=== PATIENT | female | born 2000 | race Native Hawaiian/Other Pacific Islander ===

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

== ENCOUNTER 2020-10-25 03:03 | Emergency (ER) | payer OTHER ==
[~2020-10-25] VITALS: Ht 152.4 cm; Wt 83.0 kg
[2020-10-25 03:45] VITALS: BP 136/88; TEMP 98.7
== END 2020-10-25 03:45 | disposition home or self-care (01) ==
LOC: ED 03:03
DX: R05 Cough (principal); R09.82 Postnasal drip; Z3A.12 12 weeks gestation of pregnancy; W18.2XXA Fall in (into) shower or empty bathtub, initial encounter; Y92.091 Bathroom in other non-institutional residence as the place of occurrence of the external cause
CPT/HCPCS: 99284